=== PATIENT | female | born 1945 | race African-American/Black ===

== ENCOUNTER 2017-11-22 00:43 | Emergency (ER) | payer OTHER, MEDICAID ==
[~2017-11-22] VITALS: Ht 154.9 cm; Wt 73.0 kg
[2017-11-22] MEDS ORDERED: KETOROLAC 30MG/ML VIAL IV STA (02:11)
[2017-11-22] MEDS ORDERED: SODIUM CHLORIDE 0.9% 1,000 ML IV ONE (02:11)
[2017-11-22] MEDS ORDERED: ONDANSETRON HCL 4MG/2ML VIAL IV STA (02:11)
[2017-11-22 02:44] LABS: BASOPHILS % 0.7 % (0.0-2.0); EOSINOPHILS % 2.2 % (0.0-5.0); HEMATOCRIT. 36.2 % (36.0-48.0); MEAN CORPUSCULAR VOLUME 90.7 fL (81.0-99.0); MEAN PLATELET VOLUME 8.5 fl (7.4-10.4); MONOCYTES % 8.9 % (2.0-8.0); NEUTROPHILS % 53.2 % (40.0-76.0); PLATELET 183 x1000/uL (130-400); RED BLOOD CELL COUNT 3.99 mill/uL (4.2-5.4)
[2017-11-22 02:49] LABS: INR 1.1
[2017-11-22 02:53] LABS: CHLORIDE 103 mEq/L (98-107)
[2017-11-22 03:41] LABS: CLARITY URINE CLEAR (CLEAR); COLOR URINE YELLOW (YELLOW); KETONES URINE NEGATIVE (NEGATIVE); LEUKOCYTE ESTERASE URINE TRACE (NEGATIVE); NITRITE URINE NEGATIVE (NEGATIVE); OCCULT BLOOD URINE NEGATIVE (NEGATIVE); PROTEIN URINE NEGATIVE (NEGATIVE); SPECIFIC GRAVITY URINE 1.008 (1.005-1.030); UROBILINOGEN URINE 0.2 E.U./dL (0.2-1.0)
[2017-11-22 06:36] VITALS: BP 107/50
== END 2017-11-22 07:31 | disposition home or self-care (01) ==
LOC: ER 00:43
DX: R10.12 Left upper quadrant pain (principal); M62.838 Other muscle spasm; E11.9 Type 2 diabetes mellitus without complications; E78.00 Pure hypercholesterolemia, unspecified; I10 Essential (primary) hypertension; Z88.5 Allergy status to narcotic agent; Z95.5 Presence of coronary angioplasty implant and graft; Z98.890 Other specified postprocedural states
CPT/HCPCS: 36415; 71045; 74176; 80053; 81003; 83605; 83690; 84484; 85025; 85610; 93005; 96361; 96374; 96375; 99285; J1885; J2405; J7030

== ENCOUNTER 2018-08-31 17:57 | Emergency (ER) | payer OTHER, MEDICAID ==
[~2018-08-31] VITALS: Ht 154.9 cm; Wt 72.0 kg
[2018-08-31] MEDS ORDERED: SODIUM CHLORIDE 0.9% 1,000 ML IV ONE ×2 (21:02→22:44)
[2018-08-31 21:31] LABS: BG BASE EXCESS 1.5 mmol/L (-2.0-2.0); BG DEOXYHEMOGLOBIN 2.4 % (0.0-5.0); BG FRACTION INSPIRED OXYGEN 21; BG HCO3 ACT 25.3 mmol/L (22.0-26.0); BG METHEMOGLOBIN 0.2 % (0.0-1.5); BG OXYGEN SATURATION 97.6 % (92.0-98.5); BG OXYHEMOGLOBIN 96.4 % (94.0-97.0); BG PCO2 37.1 mmHg (35.0-45.0); BG PH 7.451 (7.350-7.450); BG PO2 99.6 mmHg (75.0-100.0); BG SAMPLE SITE RIGHT RADIAL; BG TOTAL HEMOGLOBIN 14.3 g/dL (12.0-18.0); BG VENT MODE ROOM AIR
[2018-08-31 21:57] LABS: CLARITY URINE CLEAR (CLEAR); COLOR URINE YELLOW (YELLOW); KETONES URINE NEGATIVE (NEGATIVE); LEUKOCYTE ESTERASE URINE NEGATIVE (NEGATIVE); NITRITE URINE NEGATIVE (NEGATIVE); OCCULT BLOOD URINE NEGATIVE (NEGATIVE); PROTEIN URINE NEGATIVE (NEGATIVE); SPECIFIC GRAVITY URINE 1.032 (1.005-1.030); UROBILINOGEN URINE 0.2 E.U./dL (0.2-1.0)
[2018-08-31 22:11] LABS: BASOPHILS % 0.6 % (0.0-2.0); EOSINOPHILS % 1.3 % (0.0-5.0); HEMATOCRIT. 41.2 % (36.0-48.0); HEMOGLOBIN. 13.5 g/dL (12.0-16.0); LYMPHOCYTES % 33.1 % (20.0-50.0); MEAN CORPUSCULAR HEMOGLOBIN 29.9 pg (28.0-32.0); MEAN PLATELET VOLUME 9.5 fl (7.4-10.4); MONOCYTES % 8.1 % (2.0-8.0); NEUTROPHILS % 56.9 % (40.0-76.0); PLATELET 181 x1000/uL (130-400); RED BLOOD CELL COUNT 4.52 mill/uL (4.2-5.4); RED CELL DISTRIBUTION WIDTH 13.8 % (11.6-14.6)
[2018-08-31 22:16] LABS: CHLORIDE 96 mEq/L (98-107); INR 1.1; PROTHROMBIN TIME 10.6 sec (9.1-11.1)
[2018-08-31 22:26] LABS: BETA HYDROXYBUTYRATE 0.2 mMol/L (0.0-0.3)
[2018-08-31] MEDS ORDERED: INSULIN REGULAR (HUMULIN R) UD 100 UNITS/ML SYR SUBCUT ONE (22:30)
[2018-08-31] MEDS ORDERED: INSULIN REGULAR (HUMULIN R) 300UNITS/3ML SUBCUT SCH (22:45)
[2018-08-31] MEDS ORDERED: ACETAMINOPHEN 325MG TABLET PO ONE (23:30)
[2018-09-01] MEDS ORDERED: INSULIN REGULAR (HUMULIN R) UD 100 UNITS/ML SYR IV ONE (00:15)
[2018-09-01] MEDS ORDERED: INSULIN REGULAR (HUMULIN R) 300UNITS/3ML IV SCH (00:45)
[2018-09-01 01:00] VITALS: BP 140/46
== END 2018-09-01 01:25 | disposition home or self-care (01) ==
LOC: ER 17:57
DX: E11.65 Type 2 diabetes mellitus with hyperglycemia (principal); E87.8 Other disorders of electrolyte and fluid balance, not elsewhere classified; I25.10 Atherosclerotic heart disease of native coronary artery without angina pectoris; I10 Essential (primary) hypertension; E78.00 Pure hypercholesterolemia, unspecified; Z91.14 Patient's other noncompliance with medication regimen; Z95.1 Presence of aortocoronary bypass graft; Z90.711 Acquired absence of uterus with remaining cervical stump; Z79.4 Long term (current) use of insulin; Z88.5 Allergy status to narcotic agent
CPT/HCPCS: 36415; 36600; 80053; 81003; 82010; 82375; 82805; 82962; 83605; 83690; 84484; 85025; 85610; 93005; 96361; 96372; 96374; 96376; 99284; J1815; J7030

== ENCOUNTER 2024-11-02 10:26 | Emergency (ER) | payer OTHER, MEDICAID ==
[~2024-11-02] VITALS: Ht 165.1 cm; Wt 69.0 kg
[2024-11-02 10:30] VITALS: O2SAT 99
[2024-11-02 11:10] LABS: BASOPHILS % 0.5 % (0.0-2.0); EOSINOPHILS % 1.8 % (0.0-5.0); HEMATOCRIT. 33.4 % (36.0-48.0); HEMOGLOBIN. 10.9 g/dL (12.0-16.0); LYMPHOCYTES % 17.4 % (20.0-50.0); MEAN CORPUSCULAR HEMOGLOBIN 31.3 pg (28.0-32.0); MEAN CORPUSCULAR HGB CONC 32.6 g/dL (31.0-37.0); MEAN CORPUSCULAR VOLUME 96.1 fL (81.0-99.0); MEAN PLATELET VOLUME 9.9 fl (7.4-10.4); MONOCYTES % 11.3 % (2.0-8.0); PLATELET 106 x1000/uL (130-400); RED BLOOD CELL COUNT 3.47 mill/uL (4.2-5.4); RED CELL DISTRIBUTION WIDTH 16.3 % (11.6-14.6); WHITE BLOOD COUNT 6.5 x1000/uL (4.5-11.0)
[2024-11-02 11:18] LABS: CARBON DIOXIDE 27 mEq/L (21-32); CHLORIDE 104 mEq/L (98-107); POTASSIUM 3.5 mEq/L (3.5-5.1); SODIUM 137 mEq/L (136-145)
[2024-11-02] MEDS: KETOROLAC 30MG/ML VIAL IV STA (11:18)
[2024-11-02 11:19] LABS: CALCIUM 9.1 mg/dL (8.7-10.4)
[2024-11-02 11:21] LABS: INR 1.1; PROTHROMBIN TIME 11.5 sec (9.6-11.0)
[2024-11-02 11:23] LABS: CREATININE 1.2 mg/dL (0.6-1.0)
[2024-11-02 11:24] LABS: GLUCOSE 258 mg/dL (70-105); UREA NITROGEN BLOOD 17 mg/dL (9-23)
[2024-11-02 11:25] LABS: ALANINE AMINOTRANSFERASE 16 IU/L (10-49); ALBUMIN 3.8 g/dL (3.2-4.8); ASPARTATE AMINOTRANSFERASE 17 IU/L (<34)
[2024-11-02 11:26] LABS: BILIRUBIN DIRECT 0.3 mg/dL (<=3.0); BILIRUBIN TOTAL 0.9 mg/dL (0.1-1.0); PROTEIN TOTAL 7.2 g/dL (6.0-8.3)
[2024-11-02] MEDS: METRONIDAZOLE 500 MG PREMIX 100 ML IV ONE (13:28)
[2024-11-02] MEDS: LEVOFLOXACIN 750MG PREMIX 150 ML IV ONE (13:28)
[2024-11-02] MEDS: LABETALOL 5MG/ML 4ML INJ IV ONE (15:28)
[2024-11-02 16:02] VITALS: BP 175/66; PULSE 67; RESP 16; TEMP 36.5; O2SAT 99
[2024-11-02] MEDS ORDERED: ISOS30TA91 PO (16:15)
[2024-11-02] MEDS ORDERED: TACR30OI4 TP (16:15)
[2024-11-02] MEDS ORDERED: FURO20TA4 PO (16:15)
[2024-11-02] MEDS ORDERED: LOSA100T33 PO (16:15)
[2024-11-02] MEDS ORDERED: HYDR50TA39 PO (16:15)
[2024-11-02] MEDS ORDERED: CARV12.545 PO (16:15)
[2024-11-02] MEDS ORDERED: GABA-1180 PO (16:15)
[2024-11-02] MEDS ORDERED: ATOR-2 PO (16:15)
[2024-11-02] MEDS ORDERED: ONDANSETRON HCL 4MG/2ML INJ IV PRN (16:30)
[2024-11-02] MEDS ORDERED: DEXTROSE 50% WATER 50ML SYRINGE IV PRN (16:30)
[2024-11-02] MEDS ORDERED: LEVOFLOXACIN 500MG PREMIX 100 ML IV SCH (16:30)
[2024-11-02] MEDS ORDERED: ACETAMINOPHEN 325MG TABLET PO PRN (16:30)
[2024-11-02] MEDS ORDERED: BLOOD SUGAR DIAGNOSTIC STRIP TEST SCH (17:00)
[2024-11-02] MEDS ORDERED: INSULIN LISPRO 100 UNITS/ML SUBCUT SCH (18:20)
[2024-11-02] MEDS ORDERED: ISOSORBIDE MONONITRATE 30MG TABLET SR 24HR PO SCH (21:00)
[2024-11-02] MEDS ORDERED: CARVEDILOL 12.5MG TABLET PO SCH (21:00)
[2024-11-02] MEDS ORDERED: FUROSEMIDE 20MG TABLET PO SCH (21:00)
[2024-11-02] MEDS ORDERED: METRONIDAZOLE 500 MG PREMIX 100 ML IV SCH (22:00)
[2024-11-03] MEDS ORDERED: GABAPENTIN 300MG CAPSULE PO SCH (09:00)
[2024-11-03] MEDS ORDERED: LOSARTAN 100 MG TABLET PO SCH (09:00)
[2024-11-03] MEDS ORDERED: ATORVASTATIN CALCIUM 40MG TABLET PO SCH (09:00)
[2024-11-03] MEDS ORDERED: PANTOPRAZOLE SODIUM 40 MG/VIAL IV SCH (09:00)
[2024-11-03] MEDS ORDERED: LEVOFLOXACIN 250MG PREMIX 50ML IV SCH (11:00)
== END 2024-11-02 16:14 | disposition short-term general hospital (02) ==
LOC: ER 10:26
DX: K52.9 Noninfective gastroenteritis and colitis, unspecified (principal); R10.12 Left upper quadrant pain; E11.9 Type 2 diabetes mellitus without complications; E78.00 Pure hypercholesterolemia, unspecified; I10 Essential (primary) hypertension; I25.10 Atherosclerotic heart disease of native coronary artery without angina pectoris; Z88.5 Allergy status to narcotic agent; Z90.710 Acquired absence of both cervix and uterus; Z95.1 Presence of aortocoronary bypass graft
CPT/HCPCS: 99285; 74176; 96374; 96375; 80076; 80048; 83690; 85025; 85610; 36415; J1885; J3490 ×2; J1956